=== PATIENT | male | born 1980 | race Caucasian/White ===

== ENCOUNTER 2021-04-26 00:14 | Inpatient (IN) | payer OTHER ==
[2021-04-26] VITALS (14 sets, daily range): BP systolic 87–141; BP diastolic 48–81
[~2021-04-26] VITALS: Ht 180.3 cm; Wt 110.2 kg
[2021-04-26 01:50] LABS: ABSOLUTE NEUTROPHILS 6.8 thou/uL (1.4-8.2); BASOPHILS 0.3 % (0.0-2.0); EOSINOPHILS 0.1 % (0.0-3.0); HEMATOCRIT 52.5 % (42.0-52.0); LYMPHOCYTES 15.7 % (24.0-44.0); MCH 30.7 pg (26.0-34.0); MCHC 34.4 g/dL (28.0-37.0); MCV 89.4 fL (80.0-100.0); MONOCYTES 8.5 % (1.0-8.0); PLATELET COUNT 202 thou/uL (150-400); POLYS 75.4 % (36.0-66.0); RBC 5.88 mil/uL (4.50-6.00); RDW 13.2 % (10.5-14.5)
[2021-04-26 02:19] LABS: ALBUMIN 4.2 g/dL (3.4-5.0); CALCIUM 9.2 mg/dL (8.5-10.1); CREATININE 1.2 mg/dL (0.7-1.3); DIRECT BILIRUBIN 0.2 mg/dL (<0.1-0.2); POTASSIUM 4.1 mmol/L (3.5-5.1); TOTAL BILIRUBIN 0.7 mg/dL (0.2-1.0); TOTAL PROTEIN 8.4 g/dL (6.4-8.2)
[2021-04-26 03:51] LABS: URINE BILIRUBIN 1+ (Negative); URINE BLOOD TRACE (Negative); URINE CLARITY CLEAR; URINE COLOR YELLOW; URINE GLUCOSE-RANDOM* 2+ (Negative); URINE KETONES 3+ (Negative); URINE LEUKOCYTES-REFLEX NEGATIVE (Negative); URINE NITRITE-REFLEX NEGATIVE (Negative); URINE PROTEIN (DIPSTICK) 1+ (Negative); URINE SPECIFIC GRAVITY >= 1.030 (1.005-1.035); URINE UROBILINOGEN 0.2 E.U./dl (0.2-1.0)
[2021-04-26 04:11] LABS: AMP/METHAMP Negative (Negative); BARBITURATES Negative (Negative); BENZODIAZEPINES Negative (Negative); COCAINE Negative (Negative); METHADONE Negative (Negative); OPIATES Negative (Negative); PCP Negative (Negative)
[2021-04-26 04:17] LABS: BACTERIA-REFLEX 1-9 Few /HPF (None Seen); CASTS None Seen /LPF (None Seen); CRYSTALS None Seen /LPF (None Seen); MUCUS 4-6 Moderate strn/LPF (None Seen); SQUAMOUS 4-10 Moderate /LPF (0-3); URINE RBC 3-10 Few /HPF (NONE SEEN); URINE WBC-REFLEX 0-5 Rare /HPF (0-5)
[2021-04-26 04:46] LABS: ANION GAP 35 mmol/L (7-16); BUN 14 mg/dL (7-18); CALCIUM 9.3 mg/dL (8.5-10.1); CHLORIDE 96 mmol/L (98-107); CREATININE 1.3 mg/dL (0.7-1.3); GLUCOSE 359 mg/dL (74-106); POTASSIUM 4.4 mmol/L (3.5-5.1); SODIUM 136 mmol/L (136-145)
[2021-04-26 04:47] LABS: CO2 < 5 mmol/L (21-32)
[2021-04-26 04:51] LABS: ALBUMIN 4.4 g/dL (3.4-5.0); MAGNESIUM 1.6 mg/dL (1.8-2.4); PHOSPHORUS 5.1 mg/dL (2.6-4.7)
[2021-04-26 05:45] LABS: BE(vivo) -21.1 mmol/L (-2 to +3); HCO3 7.4 mmol/L (22.0-26.0); PCO2 VENOUS 25.6 mmHg (41.0-51.0); PO2 VENOUS 47.6 mmHg (35.0-45.0)
[2021-04-26 06:59] LABS: ALBUMIN 3.6 g/dL (3.4-5.0); CALCIUM 8.4 mg/dL (8.5-10.1); CREATININE 1.1 mg/dL (0.7-1.3); PHOSPHORUS 3.7 mg/dL (2.6-4.7); POTASSIUM 4.7 mmol/L (3.5-5.1)
--- NOTE | 2021-04-26 08:23 | EKG ---
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 04/26/21 [id number] Derek Kramer MD, FACC /EPI
--- NOTE | 2021-04-26 08:47 | NUR ---
PT FATHER WAS CALLED PER PT REQUEST BUT HIS FATHER DID NOT ANSWER
[2021-04-26 09:07] LABS: ANION GAP 30 mmol/L (7-16); BUN 13 mg/dL (7-18); CALCIUM 8.7 mg/dL (8.5-10.1); CHLORIDE 103 mmol/L (98-107); GLUCOSE 232 mg/dL (74-106); SODIUM 138 mmol/L (136-145)
[2021-04-26 09:10] LABS: CO2 < 5 mmol/L (21-32)
--- NOTE | 2021-04-26 18:57 | NUR ---
PT RECEIVED FROM ED TRANFERED INTO THE ICU BED AND PLACE ON THE MONITORS.PT AOX 4, RM AIR, BREATHING REGULARLY, SR. PT SIGNS FALL CONTRACT. FOUND INFUSING INSULIN & D51/2NS @150H/R. PT PLACE ON FALL PRECAUTION, MD CRISOSTOMO NOTIFIED THAT PT IS IN THE ICU. VERBAL REPORT GIVEN TO INCOMING RN NORMA.
[2021-04-26 21:10] LABS: ALBUMIN 3.1 g/dL (3.4-5.0); CALCIUM 8.7 mg/dL (8.5-10.1); CREATININE 0.9 mg/dL (0.7-1.3); MAGNESIUM 1.3 mg/dL (1.8-2.4); PHOSPHORUS 2.7 mg/dL (2.5-4.9)
[2021-04-26 21:13] LABS: POTASSIUM 2.9 mmol/L (3.5-5.1)
[2021-04-27] VITALS (23 sets, daily range): BP systolic 90–116; BP diastolic 48–67
[2021-04-27 01:25] LABS: ABSOLUTE NEUTROPHILS 6.1 thou/uL (1.4-8.2); BASOPHILS 0.4 % (0.0-2.0); EOSINOPHILS 0.3 % (0.0-3.0); HEMATOCRIT 43.3 % (42.0-52.0); LYMPHOCYTES 14.8 % (24.0-44.0); MCHC 34.4 g/dL (28.0-37.0); MCV 87.2 fL (80.0-100.0); PLATELET COUNT 171 thou/uL (150-400); POLYS 73.5 % (36.0-66.0); RBC 4.96 mil/uL (4.50-6.00); RDW 13.1 % (10.5-14.5); WBC 8.3 thou/uL (4.0-11.0)
[2021-04-27 01:36] LABS: CALCIUM 8.2 mg/dL (8.5-10.1); CREATININE 0.9 mg/dL (0.7-1.3); MAGNESIUM 1.6 mg/dL (1.8-2.4); PHOSPHORUS 3.4 mg/dL (2.6-4.7); POTASSIUM 3.6 mmol/L (3.5-5.1)
[2021-04-27 01:56] LABS: HEMOGLOBIN 14.9 gm/dL (14.0-18.0)
[2021-04-27 06:21] LABS: ALBUMIN 2.9 g/dL (3.4-5.0); ANION GAP 13 mmol/L (7-16); BUN 6 mg/dL (7-18); CALCIUM 8.1 mg/dL (8.5-10.1); CHLORIDE 104 mmol/L (98-107); CO2 17 mmol/L (21-32); CREATININE 0.9 mg/dL (0.7-1.3); GLUCOSE 159 mg/dL (74-106); PHOSPHORUS 1.4 mg/dL (2.5-4.9); SODIUM 134 mmol/L (136-145)
--- NOTE | 2021-04-27 07:00 | NUR ---
Pt progressing toward goals. No further nausea or vomitting since admit to ICU. Anion gap now closed (was 9 at 0530), blood sugar below 200. Electrolytes back within normal range. 04/26/210: Pt was admitted to ICU from ED holding area at 1845. Pt weak, feeling very tired, but oriented x4. Monitor sinus rhythm 80's to 90's. On room air, sat > 95%. Pt on insulin gtt and fluids per DKA protocol.
[2021-04-27 07:12] LABS: GLYCOHEMOGLOBIN (HGB A1C) 11.6 % (4.8-5.6)
[2021-04-27 09:44] LABS: CALCIUM 8.6 mg/dL (8.5-10.1); CREATININE 0.9 mg/dL (0.7-1.3); POTASSIUM 3.7 mmol/L (3.5-5.1)
[2021-04-27 09:48] LABS: ALBUMIN 3.2 g/dL (3.4-5.0); MAGNESIUM 1.9 mg/dL (1.8-2.4); PHOSPHORUS 2.9 mg/dL (2.5-4.9)
[2021-04-27 13:09] LABS: ALBUMIN 3.2 g/dL (3.4-5.0); CALCIUM 8.3 mg/dL (8.5-10.1); CREATININE 0.9 mg/dL (0.7-1.3); MAGNESIUM 1.7 mg/dL (1.8-2.4); PHOSPHORUS 2.5 mg/dL (2.5-4.9); POTASSIUM 3.6 mmol/L (3.5-5.1)
[2021-04-27] MEDS ORDERED: METFORMIN HCL500 MG PO (14:37)
[2021-04-27] MEDS ORDERED: JARDIANCE10 MG PO (14:38)
[2021-04-27] MEDS ORDERED: BASAGLAR K100 UNIT/1 SUBQ (14:41)
[2021-04-27] MEDS ORDERED: HUMALOG100 UNIT/1 SUBQ (14:42)
[2021-04-27] MEDS ORDERED: OZEMPIC0.25 MG/0. SUBQ (14:45)
--- NOTE | 2021-04-27 15:47 | NUR ---
40 year old male presents to the ED on 04-26-21 with vomiting x 3 days. Patient is an insulin-dependent diabetic, and due to lack of PO intake has not been taking insulin. BG on admit of 384. Patient admitted for DKA, Hypomagnesia, Marijuana use,. Per ED triage assessment the patient was vacinatted in January with [employer] and per ID NOW in the ED as negative.
--- NOTE | 2021-04-27 15:48 | NUR ---
Per nursing and MD's patient remains alert and oriented x4. The patient reports that his PCP is Dr Yulissa Horn and his father Gorge Nicole at [phone] as his next of kin. As care progresses and discharge needs identified CM will follow for any discharge needs.
[2021-04-27 18:22] LABS: ALBUMIN 2.9 g/dL (3.4-5.0); CALCIUM 8.2 mg/dL (8.5-10.1); CREATININE 0.9 mg/dL (0.7-1.3); MAGNESIUM 2.2 mg/dL (1.8-2.4); PHOSPHORUS 1.9 mg/dL (2.5-4.9); POTASSIUM 3.3 mmol/L (3.5-5.1)
--- NOTE | 2021-04-27 19:30 | NUR ---
PT MED REC WAS COMPLETED THIS SHIFT. PT HAD ROOMMATE VISIT AT BEDSIDE AROUND LUNCHTIME. PT HAD NO C/O PAIN, NAUSEA, OR VOMITING TODAY. APPETITE HAS BEEN FAIR AND IS INCREASING. PT SATS ON RA 98-100% AND URINE OUTPUT IS ADEQUATE. PT DID NOT HAVE A BM TODAY. INSULIN GTT REMAINS ON AND DKA PROTOCOL WILL CONTINUE TO BE FOLLOWED PER DR. HOFFMAN. WILL CONTINUE TO MONITOR AND FOLLOW POC.
[2021-04-28] VITALS (17 sets, daily range): BP systolic 93–118; BP diastolic 42–73
[2021-04-28 00:56] LABS: ALBUMIN 2.7 g/dL (3.4-5.0); CALCIUM 7.9 mg/dL (8.5-10.1); CREATININE 0.7 mg/dL (0.7-1.3); MAGNESIUM 1.7 mg/dL (1.8-2.4); PHOSPHORUS 2.2 mg/dL (2.6-4.7); POTASSIUM 3.4 mmol/L (3.5-5.1)
[2021-04-28 04:47] LABS: ABSOLUTE NEUTROPHILS 2.9 thou/uL (1.4-8.2); BASOPHILS 0.5 % (0.0-2.0); EOSINOPHILS 0.3 % (0.0-3.0); HEMATOCRIT 39.9 % (42.0-52.0); HEMOGLOBIN 14.1 gm/dL (14.0-18.0); LYMPHOCYTES 35.4 % (24.0-44.0); MCH 30.4 pg (26.0-34.0); MCHC 35.3 g/dL (28.0-37.0); MCV 86.3 fL (80.0-100.0); MONOCYTES 11.4 % (1.0-8.0); PLATELET COUNT 143 thou/uL (150-400); POLYS 52.4 % (36.0-66.0); RBC 4.63 mil/uL (4.50-6.00); RDW 13.4 % (10.5-14.5); WBC 5.6 thou/uL (4.0-11.0)
--- NOTE | 2021-04-28 04:56 | NUR ---
PT BEEN RESTING IN NO ACUTE DISTRESS.A/OX4.PROGRESSING TOWARDS DISCHARGE GOAL.PT ON DKA PER PROTOCOL,ANION GAP 12 AT MIDNIGHT,BLODD GLUCOSE BELOW 200.POTASSIUM AND MAG REPLACED PER PROTOCOL.ON D5 1/2 NS WITH 40 MEQ KCL.UO ADEQUATE.NO N/V THIS SHIFT.UP TO TOILET,HAD A LARGE BM.AL DENIES ANY PAIN OR ANY OTHER NEEDS.PT HOPING TO GO HOME TODAY.ASSESSMENT COMPLETED DOCUMENTED.
[2021-04-28 05:22] LABS: ALBUMIN 2.8 g/dL (3.4-5.0); CALCIUM 8.1 mg/dL (8.5-10.1); CREATININE 0.7 mg/dL (0.7-1.3); MAGNESIUM 1.7 mg/dL (1.8-2.4); PHOSPHORUS 1.9 mg/dL (2.5-4.9); POTASSIUM 3.5 mmol/L (3.5-5.1); TOTAL BILIRUBIN 0.6 mg/dL (0.2-1.0); TOTAL PROTEIN 5.8 g/dL (6.4-8.2)
[2021-04-28 10:31] LABS: CALCIUM 8.4 mg/dL (8.5-10.1); CREATININE 0.7 mg/dL (0.7-1.3); MAGNESIUM 1.7 mg/dL (1.8-2.4); POTASSIUM 3.3 mmol/L (3.5-5.1)
[2021-04-28] MEDS ORDERED: METFORMIN HCL500 MG PO (15:11)
[2021-04-28] MEDS ORDERED: PROTONIX 20 MG20 M1 PO (15:11)
[2021-04-28 16:28] LABS: CALCIUM 8.2 mg/dL (8.5-10.1); CREATININE 0.7 mg/dL (0.7-1.3); MAGNESIUM 1.6 mg/dL (1.8-2.4); PHOSPHORUS 2.6 mg/dL (2.6-4.7); POTASSIUM 3.6 mmol/L (3.5-5.1)
--- NOTE | 2021-04-28 17:16 | NUR ---
PT DISCHARGED HOME. PT LEFT THE ICU WITH THIS RN AT 1550 VIA AMBULATION. THIS RN WALKED PT TO THE MAIN ENTRANCE, WHERE HE WAS PICKED UP BY HIS FATHER. PRIOR TO D/C, PT WAS GIVEN D/C PACKET AND EDUCATION. PT TOLD THIS RN HE WOULD SCHEDULE A FOLLOW-UP APPOINTMENT WITH HIS PHYSICIAN SOON POSSIBLE. PT LEFT WEARING SWEATPANTS, SLIPPERS, AND A HOODIE. THIS RN ALSO GAVE PT A BAG TO PUT THE REST OF HIS BELONGINGS IN.
== END 2021-04-28 15:50 | disposition home or self-care (01) | DRG 639 ==
LOC: ER 00:14 → ICU 03:29 → EROBS 03:29 → ICU 18:17
PROVIDERS: Emergency Medicine; Internal Medicine; Nurse Practitioner; Nurse Practitioner Family; ADMIT Hospitalist; ATTEND Hospitalist
DX: E11.10 Type 2 diabetes mellitus with ketoacidosis without coma (principal); Z20.822 Contact with and (suspected) exposure to COVID-19; Z79.899 Other long term (current) drug therapy; Z91.19 Patient's noncompliance with other medical treatment and regimen; E86.0 Dehydration; F17.210 Nicotine dependence, cigarettes, uncomplicated; Z71.51 Drug abuse counseling and surveillance of drug abuser; Z71.6 Tobacco abuse counseling; F12.90 Cannabis use, unspecified, uncomplicated; Z79.4 Long term (current) use of insulin; Z79.84 Long term (current) use of oral hypoglycemic drugs; Z90.49 Acquired absence of other specified parts of digestive tract; E83.42 Hypomagnesemia
CPT/HCPCS: 10078